=== PATIENT | female | born 1990 | race Caucasian/White ===

== ENCOUNTER 2020-11-30 11:13 | Emergency (ER) | payer OTHER ==
[~2020-11-30 11:13] MED LIST: MEDROL 4MG DOSEP4 MG PO
[2020-11-30] MEDS ORDERED: NAPROXEN500 MG PO ×2 (12:26→12:39)
[2020-11-30] MEDS ORDERED: FIORICET1 EACH PO ×2 (12:26→12:39)
== END 2020-11-30 12:35 | disposition home or self-care (01) ==
LOC: FER 11:13
DX: S09.90XA Unspecified injury of head, initial encounter (principal); G44.309 Post-traumatic headache, unspecified, not intractable; Z23 Encounter for immunization; W00.2XXA Other fall from one level to another due to ice and snow, initial encounter; Y92.009 Unspecified place in unspecified non-institutional (private) residence as the place of occurrence of the external cause
CPT/HCPCS: 70450; 72125

== ENCOUNTER → 2022-05-24 | Day surgery (SDC) | payer OTHER ==
[~2022-05-24] VITALS: Ht 182.9 cm; Wt 158.8 kg
[~2022-05-24] MED LIST changes: +ACETAMINOPHEN500 M1 PO; +COLACE100 MG PO; +FIORICET1 EACH PO; +HCTZ25 MG PO; +MOTRIN600 MG PO; +NAPROXEN500 MG PO; +OXY-IR 5MG5 MG PO
[2022-05-24 09:12] LABS: HCG (URINE) SCREEN NEGATIVE (NEGATIVE)
[2022-05-24 09:38] LABS: BASOPHIL 0.7 % (0-2); EOSINOPHIL 3.8 % (0-5); HCT 41.3 % (37.0-47.0); HGB 13.9 g/dl (12.5-16.0); LYMPHOCYTE 23.7 % (15-48); MCH 30.2 pg (25.0-31.0); MCHC 33.7 g/dL (32.0-36.0); MCV 89.8 fL (78.0-100.0); MONOCYTE 7.1 % (0-12); NRBC 0; PLT 215 K/uL (150-400); RDW 13.4 % (11.5-14.0); WBC 9.1 K/uL (4.0-10.5)
[2022-05-24 10:02] LABS: CREATININE 0.65 mg/dL (0.51-0.95); POTASSIUM 4.1 mmol/L (3.5-5.1)
== END | disposition home or self-care (01) ==
LOC: FAS 08:53
PROVIDERS: Anesthesiology; Oral & Maxillofacial Surgery
DX: K02.9 Dental caries, unspecified (principal); K04.7 Periapical abscess without sinus; E66.01 Morbid (severe) obesity due to excess calories; I10 Essential (primary) hypertension
CPT/HCPCS: D7210; D7310; 36415; 80048; 84703; 85025; 93005; J1100; J2250; J2405; J2704; J3010; J7120